=== PATIENT | male | born 1975 | race African-American/Black ===

== ENCOUNTER 2022-08-27 10:49 | Emergency (ER) | payer MEDICAID ==
[~2022-08-27] VITALS: Ht 170.2 cm; Wt 165.0 kg
[2022-08-27] MEDS ORDERED: AMOX1TAB16 PO (12:24)
[2022-08-27] MEDS ORDERED: PSEU-191 PO (12:24)
[2022-08-27] MEDS ORDERED: IBUP-1554 PO (12:26)
[2022-08-27] MEDS ORDERED: ACET-2080 PO (12:26)
[2022-08-27] MEDS ORDERED: SODIUM CHLORIDE 0.9% 1,000 ML IV ONE (12:30)
[2022-08-27] MEDS ORDERED: PERTUSS(ACELL),DIPH,TET VAC/PF 0.5 ML SYRINGE IM. ONE (12:30)
[2022-08-27 12:37] VITALS: BP 142/87
== END 2022-08-27 12:47 | disposition home or self-care (01) ==
LOC: EMS 10:49
DX: S05.12XA Contusion of eyeball and orbital tissues, left eye, initial encounter (principal); J32.9 Chronic sinusitis, unspecified; S01.112A Laceration without foreign body of left eyelid and periocular area, initial encounter; Y04.8XXA Assault by other bodily force, initial encounter; Y93.89 Activity, other specified; Y92.89 Other specified places as the place of occurrence of the external cause; Y99.8 Other external cause status
CPT/HCPCS: 70450; 70486; 90471; 90715; 99285